=== PATIENT | female | born 1960 | race Caucasian/White ===

== ENCOUNTER 2019-04-19 15:14 | Emergency (ER) | payer BC, OTHER ==
[~2019-04-19] VITALS: Ht 167.6 cm; Wt 74.7 kg
[~2019-04-19 15:14] MED LIST: SULF1TAB31 PO
[2019-04-19 15:34] VITALS: Ht 167.6 cm; Wt 74.7 kg
--- NOTE | 2019-04-19 19:27 | ERD ---
ER Documentation Chief Complaint Chief Complaint left lower back pain HPI The patient is a 59-year-old female, presenting to the ER because of left low back pain, nausea for the last 2 days, had similar symptoms previously, complains of constipation, his fever, chills, neck pain, chest pain, dyspnea, vomiting, dysuria. She does not smoke nor drink Past medical/surgical history: None ROS All systems reviewed and are negative except as per history of present illness. Medications Home Meds Active Scripts Sulfamethoxazole/Trimethoprim* (Bactrim Ds* Tablet) 1 Each Tablet, 1 TAB PO BID for 7 Days, TAB Prov:LINA PHILLIP MD 04/19/19 Allergies Allergies: Coded Allergies: No Known Allergy (Unverified , 04/20/19) PMhx/Soc Hx Alcohol Use: No Hx Substance Use: No Hx Tobacco Use: No Physical Exam Vitals Vital Signs Date Temp Pulse Resp B/P (MAP) Pulse Ox O2 O2 Flow FiO2 Time Delivery Rate 04/19/19 97.7 59 18 130/71 100 Room Air 22:32 (90) 04/19/19 97.7 41 18 144/68 100 Room Air 19:37 (93) 04/19/19 98.6 62 18 146/66 98 15:34 (92) Physical Exam Const: No acute distress. Head: Atraumatic. Eyes: Normal Conjunctiva. ENT: Normal External Ears, Nose and Mouth. Neck: Full range of motion. No meningismus. Resp: Clear to auscultation bilaterally. Cardio: Regular bradycardic Abd: Soft, non distended, normal bowel sounds, non tender. Skin: No petechiae or rashes. Back: No midline or flank tenderness. Ext: No cyanosis, or edema. Neur: Awake and alert. No focal deficit Psych: Normal Mood and Affect. Result Diagram: 04/19/19205304/19/192053 Results 24 hrs Laboratory Tests Test 04/19/19 20:54 04/19/19 21:00 White Blood Count 10.0 10^3/ul Red Blood Count 4.72 10^6/ul Hemoglobin 13.6 g/dl Hematocrit 42.0 % Mean Corpuscular Volume 89.0 fl Mean Corpuscular Hemoglobin 28.8 pg Mean Corpuscular Hemoglobin Concent 32.4 g/dl Red Cell Distribution Width 13.1 % Platelet Count 292 10^3/UL Mean Platelet Volume 10.9 fl Immature Granulocytes % 0.400 % Neutrophils % 70.1 % Lymphocytes % 19.0 % Monocytes % 9.5 % Eosinophils % 0.5 % Basophils % 0.5 % Nucleated Red Blood Cells % 0.0 /100WBC Immature Granulocytes # 0.040 10^3/ul Neutrophils # 7.0 10^3/ul Lymphocytes # 1.9 10^3/ul Monocytes # 1.0 10^3/ul Eosinophils # 0.1 10^3/ul Basophils # 0.1 10^3/ul Nucleated Red Blood Cells # 0.0 10^3/ul Sodium Level 141 mmol/L Potassium Level 4.2 mmol/L Chloride Level 101 mmol/L Carbon Dioxide Level 32 mmol/L Anion Gap 8 Blood Urea Nitrogen 12 mg/dl Creatinine 0.60 mg/dl Est Glomerular Filtrat Rate mL/min > 60 mL/min Glucose Level 97 mg/dl Calcium Level 9.8 mg/dl Troponin I < 0.012 ng/ml Thyroid Stimulating Hormone (TSH) 1.630 MIU/L Urine Color YELLOW Urine Clarity CLEAR Urine pH 6.0 Urine Specific Equality 1.010 Urine Ketones TRACE mg/dL Urine Nitrite NEGATIVE mg/dL Urine Bilirubin NEGATIVE mg/dL Urine Urobilinogen NEGATIVE mg/dL Urine Leukocyte Esterase 2+ Lina/ul Urine Microscopic RBC 1 /HPF Urine Microscopic WBC 11 /HPF Urine Hemoglobin NEGATIVE mg/dL Urine Glucose NEGATIVE mg/dL Urine Total Protein NEGATIVE mg/dl Current Medications Medications Dose Sig/Ravinder Start Time Status Last (Trade) Ordered Route PRN Stop Time Admin Dose Reason Admin Bisacodyl 10 mg ONCE ONCE 04/19/19 DC 04/19/19 (Dulcolax IN 20:00 19:41 Supp) 04/19/19 20:01 Ondansetron 4 mg ONCE STAT 04/19/19 DC 04/19/19 HCl (Zofran IV 19:37 19:41 Inj) 04/19/19 19:39 Procedures/[place] [id number] Radiology Main Line: [phone] DIAGNOSTIC IMAGING REPORT Patient: NIYA NASH : 1960 Age: 59 Sex: F MR #: [id number] DOS: 04/19/192027 Ordering MD: LINA PHILLIP MD Location: E/R Room/Bed: PROCEDURE: XR Chest 1 View. CLINICAL INDICATION: Chest pain. TECHNIQUE: Single view of the chest was obtained. COMPARISON: None. FINDINGS: Support lines and tubes: None. Mediastinum: Within normal limits of size. Lungs: Hypoinflated lungs. Mildly elevated right hemidiaphragm. Scattered atelectasis in both lungs. No consolidations. No pneumothorax. Osseous structures: Intact. Osteopenia. Degenerative changes in the shoulders. Other: None. IMPRESSION: Scattered atelectasis in both lungs. Hypoinflated lungs with a mildly elevated right hemidiaphragm. RPTAT: AA .Shane Otto MD, Date Time Electronically viewed and signed by .Shane Otto MD, MD on 04/19/2019 20:57 .P/ CC: LINA PHILLIP MD [id number] EK:19 PM read by emergency physician Rate/Rhythm: Sinus bradycardia 48 beats/min QRS, ST, T-waves: No ST elevation, no T inversion, low precordial voltage Impression: Abnormal EKG MEDICAL MAKING DECISION: The patient is a 59-year-old female, resenting with acute cystitis, acute constipation, asymptomatic bradycardia She was treated with Dulcolax suppository for constipation and Zofran IV for nausea with good response, is stable for present follow-up The differential diagnoses considered include but are not limited to cholelithiasis, cholecystitis, choledocholithiasis, cholangitis, pancreatitis, hepatitis, gastritis, peptic ulcer disease, gastric ulcer, appendicitis, cystitis, diverticulitis, partial small bowel obstruction, thyroid disease, sick sinus syndrome. Departure Diagnosis: Primary Impression: UTI (urinary tract infection) Additional Impression: Bradycardia Condition: Good Comments She was discharged with Bactrim DS I discussed the findings with the patient. I advised the patient to follow-up with the primary physician in about 1-2 days for reevaluation and referral to cardiology due to bradycardia, sooner if needed and return if any concern. Disclaimer: Inadvertent spelling and grammatical errors are likely due to EHR/dictation software use and do not reflect on the overall quality of patient care. Also, please note that the electronic time recorded on this note does not necessarily reflect the actual time of the patient encounter. LINA PHILLIP MD Apr 19, 2019 19:27
[2019-04-19] MEDS ORDERED: ONDANSETRON 4 MG INJ IV STA (19:37)
[2019-04-19] MEDS ORDERED: BISACODYL 10 MG SUPP PR ONE (20:00)
[2019-04-19 22:32] VITALS: BP 130/71; PULSE 59; RESP 18
== END 2019-04-19 22:38 | disposition home or self-care (01) ==
LOC: E/R 15:14
DX: N39.0 Urinary tract infection, site not specified (principal); R00.1 Bradycardia, unspecified
CPT/HCPCS: 36415; 71045; 80048; 81001; 84443; 84484; 85025; 93005; 96374; 99285; J2405